=== PATIENT | female | born 1950 | race Caucasian/White ===

== ENCOUNTER 2017-04-16 11:02 | Day surgery (SDC) | payer OTHER ==
[2017-04-16] MEDS ORDERED: LR 1,000 ML IV ONE (11:33)
[2017-04-16] MEDS ORDERED: ceFAZolin 2 GM/SWFI 2 GM/20 ML SYR IVP ONE (11:49)
--- NOTE | 2017-04-16 11:53 | PDHPUP ---
History & Physical Update H&P update statement: This history and physical update is based on an assessment of the patient which was completed after admission or registration (within 24 hours), but prior to the surgery/procedure.
[2017-04-16] MEDS ORDERED: BACITRACIN 50,000 UNITS/10 ML SYR IRR ONE (12:14)
[2017-04-16] MEDS ORDERED: ROPIVACAINE HCL 150 MG/30 ML INJ ONE (12:14)
[2017-04-16] MEDS ORDERED: ROPIVACAINE HCL 20 MG/10 ML INJ EP ONE (12:14)
[2017-04-16] MEDS ORDERED: DEXAMETHASONE 4 MG/ML VIAL ONE (12:14)
[2017-04-16] MEDS ORDERED: LIDOCAINE 1% 300 MG/30 ML SDV ONE (12:14)
--- NOTE | 2017-04-16 12:22 | PDANEPAE ---
ANE Past Medical History - Cardiovascular History Hx Hypertension: Yes Hx Arrhythmias: No Hx Chest Pain: No Hx Coronary Artery / Peripheral Vascular Disease: No Hx CHF / Valvular Disease: No Hx Palpitations: No Cardiovascular History Comment: pcp monitors bp meds - Pulmonary History Hx COPD: No Hx Asthma/Reactive Airway Disease: No Hx Recent Upper Respiratory Infection: No Hx Oxygen in Use at Home: No Hx Sleep Apnea: No Sleep Apnea Screening Result - Last Documented: Negative Pulmonary History Comment: allergy related asthma. recent uri 6 weeks ago - Neurologic History Hx Cerebrovascular Accident: No Hx Seizures: No Hx Dementia: No - Endocrine History Hx Diabetes: No Endocrine History Comment: hypothyroidism - Renal History Hx Renal Disorders: No - Liver History Hx Hepatic Disorders: No - Neurological & Psychiatric Hx Hx Neurological and Psychiatric Disorders: No - Cancer History Hx Cancer: No - Congenital Disorder History Hx Congenital Disorders: No - GI History Hx Gastrointestinal Disorders: No - Other Health History Other Health History: osteoarthritis. wears glasses - Chronic Pain History Chronic Pain: Yes (bilateral knees) - Surgical History Prior Surgeries: 2013 left hip pins and neeta. 04/14/13 left foot hardware removal with Bentley. breast reduction ANE Review of Systems Review of Systems: - Exercise capacity METS (RN): 4 METS ANE Patient History - Allergies Allergies/Adverse Reactions: No Known Allergies Allergy (Verified 04/02/17 13:53) - Home Medications Home medications: home medication list seen and reviewed Home Medications: Herbals/Supplements -Info Only 09/30/12 [Last Taken Unknown] Levothyroxine [Synthroid 100 mcg (RX)] 09/30/12 [Last Taken 09/30/12] Risedronate Sodium [Actonel] GOULD@06 09/30/12 [Last Taken 09/27/12] metFORMIN HCL [Glucophage 500 mg (RX)] 09/30/12 [Last Taken 09/30/12] Ambien 04/02/17 [Last Taken Unknown] Asmanex Hfa 04/02/17 [Last Taken Unknown] Aspirin 81mg (*) 04/02/17 [Last Taken Unknown] Clarinex 04/02/17 [Last Taken Unknown] Crestor 04/02/17 [Last Taken Unknown] Lisinopril 04/02/17 [Last Taken Unknown] Montelukast Sodium 04/02/17 [Last Taken Unknown] Proair Hfa 04/02/17 [Last Taken Unknown] ZYRTEC 04/02/17 [Last Taken Unknown] - NPO status NPO Since - Liquids (Date): 04/16/17 NPO Since - Liquids (Time): 07:00 NPO Since - Solids (Date): 04/15/17 NPO Since - Solids (Time): 20:00 - Anes Hx Anes Hx: no prior problems - Smoking Hx Smoking Status: Never smoked - Family Anes Hx Family Hx Anesthesia Complications: mother had hard time waking up x1 ANE Labs/Vital Signs - Labs Result Diagrams: 04/16/17 11:50 - Vital Signs Blood Pressure: 146/97 Heart Rate: 86 Respiratory Rate: 18 O2 Sat (%): 95 Height: 160.02 cm Weight: 72.575 kg ANE Physical Exam - Airway Neck exam: FROM Mallampati Score: Class 2 Mouth exam: normal dental/mouth exam - Pulmonary Pulmonary: no respiratory distress - Cardiovascular Cardiovascular: regular rate and rhythym - ASA Status ASA Status: II ANE Anesthesia Plan Anesthesia Plan: MAC
[2017-04-16] MEDS ORDERED: MIDAZOLAM 2 MG/2 ML VIAL IVP ONE (12:23)
[2017-04-16] MEDS ORDERED: PROPOFOL/EMULSION 500 MG/50 ML BOTTLE IV ONE (12:26)
[2017-04-16] MEDS ORDERED: LIDOCAINE 2% 5 ML SDV ONE (12:27)
[2017-04-16 12:28] LABS: ANION GAP 11 mEq/L (8-16); CALCIUM 9.1 mg/dL (8.5-10.4); CARBON DIOXIDE 26 mEq/l (22-31); CHLORIDE 105 mEq/L (97-110); CREATININE 0.7 mg/dL (0.6-1.0); GLOMERULAR FILTRATION RATE > 60; GLUCOSE 100 mg/dL (70-100); POTASSIUM 3.9 mEq/L (3.5-5.2); SODIUM 142 mEq/L (134-144)
[2017-04-16] MEDS ORDERED: HYDROmorphONE/DILAUDID 1 MG/ML INJ IVP PRN (13:00)
[2017-04-16] MEDS ORDERED: fentaNYL 100 MCG/2 ML INJ IVP PRN (13:00)
[2017-04-16] MEDS ORDERED: NALOXONE HCL 0.4 MG/ML INJ IVP PRN (13:00)
[2017-04-16] MEDS ORDERED: ONDANSETRON 4 MG/2 ML VIAL IVP PRN ×2 (13:00→14:27)
[2017-04-16] MEDS ORDERED: PROPOFOL 200 MG/20 ML VIAL ONE (13:43)
[2017-04-16] MEDS ORDERED: PHENYLEPHRINE HCL 100 MCG/ML SYR ONE (13:49)
--- NOTE | 2017-04-16 14:24 | POSTOPPROG ---
Post Op Note Date of Operation: 04/16/17 Surgeon: Louise Bentley Anesthesiologist: Dr. jonny Soares Pre-op Diagnosis: 2nd and 3rd hammertoes right foot Post-op Diagnosis: same Indication: pain , contracture Procedure: HT correction with arthrodesis, screw fixation, right foot Findings: osteopenia Inf/Abcess present in the surg proc area at time of surgery?: No EBL: Minimal Complications: none
--- NOTE | 2017-04-16 14:26 | POSTANESTH ---
Post Anesthetic Evaluation Cardiovascular Status: Normal, Stable Respiratory Status: Normal, Stable Level of Consciousness/Mental Status: Can Participate in Eval Pain Control: Adequate, Prn Tx Ordered Nausea/Vomiting Control: Adequate, Prn Tx Ordered Complications Possibly Related to Anesthesia: None Noted
[2017-04-16] MEDS ORDERED: OXYCODONE/APAP 5/325 TAB PO PRN (14:27)
[2017-04-16] MEDS ORDERED: ONDANSETRON DISINTEGRATING 4 MG TAB PO PRN (14:27)
[2017-04-16] MEDS ORDERED: fentaNYL 100 MCG/2 ML INJ ONE (14:29)
[2017-04-16] MEDS ORDERED: OXYCODONE/APAP 5/325 TAB ONE (14:44)
[2017-04-16 15:07] VITALS: PULSE 57; RESP 16; TEMP 97.9
[2017-04-16 15:17] VITALS: BP 132/90; O2SAT 92
--- NOTE | 2017-04-17 04:10 | GOP ---
[f rep st] OPERATIVE REPORT DATE OF OPERATION: 04/16/2017 SURGEON: Louise Bentley [facility] ANESTHESIOLOGIST: Bernardo Soares MD. PREOPERATIVE DIAGNOSIS: Painful 2nd and 3rd hammertoe deformities, right foot. POSTOPERATIVE DIAGNOSIS: Painful 2nd and 3rd hammertoe deformities, right foot. PROCEDURE PERFORMED: Reduction of 2nd and 3rd hammertoe deformities, right foot, with arthrodesis pr ocedure and screw fixation. FINDINGS: INDICATIONS: The patient presented to the hospital approximately an hour and half prior to foot surg susan after having been n.p.o. past midnight. The patient's preoperative history and physical and all lab studies were reviewed, and there were no contraindications to the proposed procedures. The patie nt was given Ancef 2 g 1 half hour prior to foot surgery. DESCRIPTION OF PROCEDURE: The patient was taken to the OR room and placed on the OR table in a supin e position where the appropriate anesthetic agents were administered. This was supplemented with a l ocal block to the right foot utilizing a total of 16 cc of a 1:1 mixture of 1% lidocaine with 0.2% Na ropin plain. The anesthetic blocks were given to the proximal aspects of this seconds of the 2nd and 3rd metatarsals and to the posterior tibial nerve as it courses through the tarsal tunnel. The rig t lower extremity was then prepped and draped in the usual aseptic fashion, covered with a sterile st ockinette. A sterile pneumatic ankle tourniquet was applied and padded well underneath. Utilizing e levation and Esmarch bandage, the right foot was exsanguinated and the tourniquet was inflated to a p ressure of 225 mmHg. The foot was then lowered to the orthopedic table. Attention was then directed to the dorsal aspect of the 2nd digit where an approximate 3 to 3.5 cm li near longitudinal incision was made centered over the proximal interphalangeal joint extending proxim ally. The incision was deepened through the subcutaneous tissues to the level of the extensor tendon taking care to preserve the neurovascular structures. Any bleeders were clamped and cauterized as n eeded. The extensor tendon was incised transversely overlying the proximal interphalangeal joint and released in a distal to proximal fashion and then releasing the contracture to the extensor calderon. T he capsular tissues were then freed from the head of the proximal phalanx and base of the middle phal anx, and the articular surfaces were resected from the joint perpendicular to the shaft of the phalan ges and placed on the back table. The surgical site was copiously irrigated with a sterile saline ba citracin solution. A navy fighter pilot hole was created with the guidewire through the middle of the distal prox imal phalanx. Then the guidewire to the OsteoMed headless screw was advanced through the central asp ect of the base of the middle phalanx, and exited the tip of the 2nd digit. The middle phalanx was t hen held flush against the proximal phalanx and the K-wire was retrograded proximally. A C-arm was u sed to check alignment. The fusion site was flush. Utilizing standard technique and measurements to day 36 mm headless OsteoMed screw was placed over the guidewire. Wire after stab incision was made t o the tip of the digit in the area of the guidewire. The guidewire was removed and the foot was load ed, and the 2nd digit was rectus in the sagittal plane, but deviated medially rubbing against the aide lux. Thus, the decision was made to resect some more bone from the arthrodesis site from the lateral aspect so as to abduct the 2nd digit away from the hallux. This screw was removed, and bone was res ected from the lateral aspect of the arthrodesis site. The care wire was reintroduced into the middl e phalanx, and then the proximal phalanx, and the same screw 36 mm 2.5 OsteoMed screw was advanced ov er the K-wire holding the middle phalanx flush to the proximal phalanx. Utilizing the C-arm, alignme nt was checked, and it was more optimal, and the arthrodesis site was approximated. There is a palpa ble hypertrophy of bone medial aspect of the distal interphalangeal joint which was resected to a smo oth surface. The surgical site was copiously irrigated with a sterile saline bacitracin solution. T he K-wire was removed, and the extensor tendon was reapproximated with 3-0 Vicryl. The subcutaneous tissues were then reapproximated with 4-0 Vicryl. The skin was reapproximated with interrupted horiz ontal mattress sutures. The same procedure was performed to the 3rd digit as that just dictated on 2nd digit; however, a 2.0 headless OsteoMed screw was utilized which measured 34 mm in length. T here was no need to resect any additional bone from the PIPJ, which was flushed, and the 3rd digit wa s in a rectus position following placement of the screw over the guidewire. The extensor tendon was similarly reapproximated with 3-0 Vicryl, the subcutaneous tissues with 4-0 Vicryl and the skin with 4-0 Prolene. A C-arm was utilized to check alignment and placement of screws prior to skin closures. The tourniquet was released prior to skin closure of the 2nd and 3rd digits, and there was immediat e capillary refill to all digits, and there was hemostasis. There was no need for additional resecti on of bone from the 3rd digit, as that dictated to the distal interphalangeal joint of the 2nd digit. A mildly compressive dry sterile gauze dressing was applied with Xeroform, 4 x 4 gauze, Luis, and an Ivan wrap. The patient tolerated the procedures well and was transferred to the recovery room with v ital signs stable and vascular status intact to the right lower extremity. In the recovery room the patient received postoperative oral and written home care instructions. The patient is permitted to bear weight in a Darco shoe for protection. The patient instructed never to walk barefooted. Postop erative radiographs were ordered and for the patient to receive a Cryo/Cuff. The patient is schedule d for 1st postoperative visit in 2 days, but is to call the office earlier if any questions or proble ms should arise. /[id number]/MODL
== END 2017-04-16 15:27 | disposition home or self-care (01) ==
LOC: FSGY 11:02
PROVIDERS: ATTEND Podiatrist
PROC: 0SGP04Z Fusion of Right Toe Phalangeal Joint with Internal Fixation Device, Open Approach (ICD-10-PCS; principal; 2017-04-16 12:30)
DX: M20.41 Other hammer toe(s) (acquired), right foot (principal); E03.9 Hypothyroidism, unspecified
CPT/HCPCS: 28285; 73630; C1769; C1713; J0690; J1100; J2250; J2370; J2704; J2795; J3010